=== PATIENT | female | born 1985 | race Caucasian/White ===

== ENCOUNTER 2022-02-23 16:47 | Emergency (ER) | payer OTHER ==
[2022-02-23 17:16] VITALS: BP 117/78; PULSE 88; RESP 18; TEMP 99.6; BMI 28.3
[2022-02-23] MEDS ORDERED: IBUPROFEN 400 MG TABLET (FP) PO ONE ×2 (17:17→17:31)
[2022-02-23] MEDS ORDERED: LIDOCAINE 5% TOPICAL PATCH TP ONE (18:40)
[2022-02-23] MEDS ORDERED: LIDOCAINE PATCH REMOVAL MC SCH (22:00)
== END 2022-02-23 19:04 | disposition home or self-care (01) ==
LOC: FER 16:47
DX: M54.2 Cervicalgia (principal); V87.7XXA Person injured in collision between other specified motor vehicles (traffic), initial encounter; Y92.9 Unspecified place or not applicable
CPT/HCPCS: 99283-25